=== PATIENT | female | born 1950 | race Caucasian/White ===

== ENCOUNTER 2016-05-21 21:36 | Emergency (ER) | payer BC ==
[2016-05-21 21:59] VITALS: O2SAT 98
--- NOTE | 2016-05-21 22:06 | ED.PDOC ---
History of Present Illness - General Chief Complaint: Skin/Abrasion/Tear Stated Complaint: skin tear to left leg Time Seen by Provider: 05/21/16 21:41 Source: patient, RN notes reviewed, Vital Signs reviewed Exam Limitations: no limitations - History of Present Illness Initial Comments: Patient stated that she stepped on her pajamas at her house tonight then left leg struck the edge of the marble table sustaining laceration. Timing/Duration: just prior to arrival Severity: mild Location: extremities - left leg Improving Factors: nothing Worsening Factors: nothing Associated Symptoms: other - pain bleeding Allergies/Adverse Reactions: Allergies NO KNOWN ALLERGY Allergy (Verified 05/21/16 21:50) Home Medications: Ambulatory Orders Acetaminophen W/ Codeine [Tylenol w/Codeine 300-30 mg] 1 tab PO TID PRN #14 tab 05/21/16 Cephalexin 1,000 mg PO BID #30 cap 05/21/16 Lisinopril 20 mg PO DAILY 05/21/16 Review of Systems - Review of Systems Constitutional: States: no symptoms reported EENTM: States: no symptoms reported Respiratory: States: no symptoms reported Cardiology: States: no symptoms reported Gastrointestinal/Abdominal: States: no symptoms reported Genitourinary: States: no symptoms reported Musculoskeletal: States: no symptoms reported Skin: States: see HPI Neurological: States: no symptoms reported Endocrine: States: no symptoms reported Past Medical History (General) - Patient Medical History Hx Seizures: No Hx Stroke: No Hx Dementia: No Hx Asthma: No Hx of COPD: No Hx Cardiac Disorders: No Hx Congestive Heart Failure: No Hx Pacemaker: No Hx Hypertension: Yes Hx Thyroid Disease: No Hx Diabetes: No Hx Gastroesophageal Reflux: No Hx Renal Disease: No Hx Cancer: No Hx of HIV: No Hx Hepatitis C: No Hx MRSA: No Surgical History: other - orif fracture left leg - Vaccination History Hx Tetanus, Diphtheria Vaccination: No Hx Influenza Vaccination: No - Social History Hx Tobacco Use: No Hx Alcohol Use: No Hx Substance Use: No Hx Substance Use Treatment: No Hx Depression: No Family Medical History - Family History Mother Family History: No Known Physical Exam - Physical Exam General Appearance: Alert, No apparent distress Eyes, Ears, Nose, Throat Exam: normal ENT inspection, TMs normal Neck: full range of motion, supple, normal inspection Cardiovascular/Chest: normal peripheral pulses, regular rate, rhythm, no gallop , no murmur Respiratory: lungs clear, normal breath sounds, no respiratory distress Gastrointestinal/Abdominal: non tender, soft, no organomegaly, no pulsatile mass Extremity: non-tender, normal inspection, no pedal edema Neurologic: alert, normal mood/affect, oriented x 3 Skin Exam: warm/dry, normal color Skin Problem Location: lower extremities - 6cm.laceration -dermal flap v- shaped distal third left leg Procedures - Laceration/Wound Repair Left Calf Wound Length (cm): 6 Wound's Depth, Shape: flap Wound Explored: clean Irrigated w/ Saline (cc's): 40 Betadine Prep?: Yes Anesthesia: 1% Lidocaine Volume Anesthetic (cc's): 10 Wound Debrided: undermining of skin done with scissor Wound Repaired With: sutures Suture Size/Type: 4:0, nylon Layer Closure?: No Sterile Dressing Applied?: Yes Splint Applied?: No Departure - Departure Clinical Impression: Hypertension, benign Laceration of left lower leg without complication Qualifiers: Encounter type: initial encounter Qualifier Code: (S81.812A) Laceration without foreign body, left lower leg, initial encounter Time of Disposition: 23:15 - Removal of suture 06/02/16 [facility] Disposition: Discharge to Home or Self Care Condition: Good Departure Forms: ED Discharge - Pt. Copy, Patient Portal Self Enrollment Instructions: DI for Minor Laceration Prescriptions: Cephalexin 1,000 mg PO BID #30 cap Acetaminophen W/ Codeine [Tylenol w/Codeine 300-30 mg] 1 tab PO TID PRN #14 tab PRN Reason: Pain Home Medications: Ambulatory Orders Acetaminophen W/ Codeine [Tylenol w/Codeine 300-30 mg] 1 tab PO TID PRN #14 tab 05/21/16 Cephalexin 1,000 mg PO BID #30 cap 05/21/16 Lisinopril 20 mg PO DAILY 05/21/16 Additional Instructions: RETURN TO EMERGENCY ROOM NEEDED;NEED TO WEAR TIGHT HOSE ELEVATE LEFT LEG 20 degrees AT BEDTIME
[2016-05-21] MEDS ORDERED: POVIDONE IODINE 10 % 15 ML UD TOP ONE (22:11)
[2016-05-21] MEDS ORDERED: LIDOCAINE 1% 10 ML VIAL INJ ONE (22:11)
[2016-05-21] MEDS ORDERED: TETANUS,DIPHTHERIA,PERTUSSIS 1 EA SYG IM ONE (22:21)
[2016-05-21] MEDS ORDERED: CEPHALEXIN 500MG CAP (ER DISP) PO ONE (23:10)
[2016-05-21] MEDS ORDERED: LISINOPRIL 10 MG TAB PO ONE (23:11)
[2016-05-21] MEDS ORDERED: HYDROCOD/APAP 7.5/325 (ER DISP) #3 TAB PO ONE (23:12)
[2016-05-21] MEDS ORDERED: CEPHALEXIN MONOHYDRATE 500 MG CAP PO ONE (23:19)
[2016-05-21] MEDS ORDERED: HYDROcodone 7.5MG/APAP 325MG 1 EA TAB PO ONE (23:19)
[2016-05-21 23:40] VITALS: BP 177/100; TEMP 97.9
== END 2016-05-21 23:40 | disposition home or self-care (01) ==
LOC: ER 21:36
DX: S81.812A Laceration without foreign body, left lower leg, initial encounter (principal); I10 Essential (primary) hypertension; Z23 Encounter for immunization; Z79.899 Other long term (current) drug therapy; W22.03XA Walked into furniture, initial encounter; Y92.009 Unspecified place in unspecified non-institutional (private) residence as the place of occurrence of the external cause

== ENCOUNTER 2018-06-11 10:14 | Emergency (ER) | payer MEDICARE, BC ==
[2018-06-11] MEDS ORDERED: IPRATROPIUM/ALBUTEROL 3 ML VIAL NEB ONE (10:34)
[2018-06-11] MEDS ORDERED: KETOROLAC TROMETHAMINE INJ 60 MG/2 ML VIAL IM ONE (10:34)
[2018-06-11] MEDS ORDERED: LISINOPRIL 10 MG TAB PO ONE (10:34)
--- NOTE | 2018-06-11 10:39 | ED.PDOC ---
History of Present Illness - General Chief Complaint: Respiratory Problem Stated Complaint: chest pain, coughing, headache Time Seen by Provider: 06/11/18 10:33 Source: patient Exam Limitations: no limitations - History of Present Illness Comments: patient comes in today with three-day history of cough and congestion that suddenly worsened yesterday. Patient has bodyaches and subjective fever and chills. Some nausea and loose stools but no emesis. Patient does have sore throat and does have a severe cough that is nonproductive. Patient herself has a past medical history of hypertension she has been out of her blood pressure medication for some time. Patient has no history of smoking but she has lived with smokers her whole life and does have a history of having asthma type symptoms with bouts of bronchitis every couple of years. Timing/Duration: getting worse Cough Quality/Degree: dry cough Possible Cause: no prior episodes Improving Factors: nothing Worsening Factors: nothing Associated Symptoms: cough, fever/chills, muscle aches, sore throat Respiratory Risk Factors: no cause identified Allergies/Adverse Reactions: Allergies NO KNOWN ALLERGY Allergy (Verified 05/21/16 21:50) Home Medications: Ambulatory Orders Lisinopril 20 mg PO DAILY 05/21/16 Albuterol Inhaler [Ventolin Hfa Inhaler] 108 mcg IN Q4HR PRN #1 inh 06/11/18 Lisinopril & Hydrochlorothiazi [Lisinopril/Hctz 20-12.5 mg] 1 tab PO DAILY #30 tab 06/11/18 Review of Systems - Review of Systems Constitutional: States: chills, fever, malaise EENTM: States: nose pain, nose congestion, throat pain Respiratory: States: cough. Denies: short of breath, wheezing Cardiology: Denies: chest pain, edema, palpitations Gastrointestinal/Abdominal: States: diarrhea, nausea. Denies: abdominal pain, constipation, vomiting Genitourinary: States: no symptoms reported Past Medical History (General) - Patient Medical History Hx Seizures: No Hx Stroke: No Hx Dementia: No Hx Asthma: No Hx of COPD: No Hx Cardiac Disorders: No Hx Congestive Heart Failure: No Hx Pacemaker: No Hx Hypertension: Yes Hx Thyroid Disease: No Hx Diabetes: No Hx Gastroesophageal Reflux: No Hx Renal Disease: No Hx Cancer: No Hx of HIV: No Hx Hepatitis C: No Hx MRSA: No Surgical History: tonsillectomy - Vaccination History Hx Tetanus, Diphtheria Vaccination: No Hx Influenza Vaccination: No Hx Pneumococcal Vaccination: No - Social History Hx Tobacco Use: No Hx Alcohol Use: No Hx Substance Use: No Hx Substance Use Treatment: No Hx Depression: No Family Medical History - Family History Mother Family History: No Known Living Status: Cause of : CVA Hx Family Hypertension: Yes Hx Family Stroke: Yes Physical Exam - Physical Exam General Appearance: Alert, No apparent distress Eye Exam: bilateral normal ENT Exam: hearing grossly normal, TMs normal, nasal congestion, nasal drainage, pharyngeal erythema Neck: non-tender, full range of motion, supple, normal inspection Respiratory: no respiratory distress, wheezing - wheezing at the left lower lobe with expiration and no crackles no retractions Cardiovascular/Chest: normal peripheral pulses, regular rate, rhythm, no murmur Gastrointestinal/Abdominal: normal bowel sounds, non tender, soft Neurologic: alert, oriented x 3 Progress - Progress Progress: 06/11/18 11:23 doing better after breathing treatment and discussed precautions secondary to correction smoke exposure and past treatment window. - Results/Orders Results/Orders: 06/11/18 10:35 INFLUENZA A & B BY PCR Stat Laboratory Results WBC 9.7 K/mm3 (4.8-10.8) 06/11/18 11:01 RBC 4.80 M/mm3 (4.20-5.40) 06/11/18 11:01 Hgb 14.2 gm/dL (12.0-16.0) 06/11/18 11:01 Hct 42.2 % (36.0-47.0) 06/11/18 11:01 MCV 87.8 fl (81.0-99.0) 06/11/18 11:01 MCH 29.6 pg (27.0-31.0) 06/11/18 11:01 MCHC 33.7 g/dL (33.0-37.0) 06/11/18 11:01 RDW 14.2 % (11.5-14.5) 06/11/18 11:01 Plt Count 236 K/mm3 (130-400) 06/11/18 11:01 MPV 9.5 fl (7.40-10.4) 06/11/18 11:01 Absolute Neuts (auto) 8.10 K/uL (1.8-6.8) H 06/11/18 11:01 Absolute Lymphs (auto) 0.50 K/uL (1.0-3.4) L 06/11/18 11:01 Absolute Monos (auto) 1.00 K/uL (0.2-0.8) H 06/11/18 11:01 Absolute Eos (auto) 0.10 K/uL (0.0-0.4) 06/11/18 11:01 Absolute Basos (auto) 0.00 K/uL (0.0-0.1) 06/11/18 11:01 Neutrophils % 83.9 % (42.0-78.0) H 06/11/18 11:01 Lymphocytes % 5.0 % (20.0-50.0) L 06/11/18 11:01 Monocytes % 9.9 % (2.0-9.0) H 06/11/18 11:01 Eosinophils % 0.8 % (1.0-5.0) L 06/11/18 11:01 Basophils % 0.4 % (0.0-2.0) 06/11/18 11:01 Influ A positive Chest Xray no acute cardiopulmonary disease Departure - Departure Clinical Impression: Influenza Disposition: Discharge to Home or Self Care Condition: Good Departure Forms: ED Discharge - Pt. Copy, Patient Portal Self Enrollment Diet: regular diet Referrals: Filomena Carlos NP [Primary Care Provider] - 1-2 Weeks Prescriptions: Lisinopril & Hydrochlorothiazi [Lisinopril/Hctz 20-12.5 mg] 1 tab PO DAILY #30 tab Home Medications: Ambulatory Orders Lisinopril 20 mg PO DAILY 05/21/16 Albuterol Inhaler [Ventolin Hfa Inhaler] 108 mcg IN Q4HR PRN #1 inh 06/11/18 Lisinopril & Hydrochlorothiazi [Lisinopril/Hctz 20-12.5 mg] 1 tab PO DAILY #30 tab 06/11/18 Additional Instructions: return to ER for shortness of breath, intractable emesis, contagious precautions, stay away from smoke exposure. Follow up with PCP in 2 weeks to recheck BP
--- NOTE | 2018-06-11 11:12 | RAD ---
EXAM DESCRIPTION: Chest,2 Views CLINICAL HISTORY: 67 years Female, cough COMPARISON: None. FINDINGS: Heart size is within normal limits. There is atherosclerotic change in the thoracic aorta. The lungs appear clear. Regional bony structures appear intact as visualized. Possible minimal thoracic scoliosis. IMPRESSION: No radiographic evidence of acute cardiopulmonary disease. Follow-up suggested as needed clinically. Electronically signed by: Winston Norwood MD 06/11/2018 11:10 AM [facility]
[2018-06-11 12:14] VITALS: BP 159/89; TEMP 98.2; O2SAT 94
== END 2018-06-11 12:14 | disposition home or self-care (01) ==
LOC: ER 10:14
DX: J11.1 Influenza due to unidentified influenza virus with other respiratory manifestations (principal); R06.2 Wheezing; I10 Essential (primary) hypertension
CPT/HCPCS: 36415; 71046; 85025; 87502; 94640; J1885; J7620

== ENCOUNTER → 2018-08-01 | Outpatient (CLI) | payer MEDICARE, BC | LOC: LAB.O 14:03 | PROVIDERS: ATTEND Nurse Practitioner Family | DX: Z13.220 Encounter for screening for lipoid disorders (principal); I10 Essential (primary) hypertension ==

== ENCOUNTER → 2018-10-17 | Outpatient (CLI) | payer BC, MEDICARE ==
--- NOTE | 2018-10-17 12:00 | RAD ---
Two-view left shoulder Indication: S42.202D Comparison: September 23, 2018 Impression: Previous noted comminuted fracture involving the greater tuberosity as well as anatomic and surgical neck redemonstrated with slight impaction. There is cortical irregularity of the horizontal footprint region. There is progressive union centrally but without complete healing at this time. Continued radiographic surveillance recommended. 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 Electronically signed by: Jeovany Duran MD 10/17/2018 11:57 AM CDT
== END ==
LOC: RAD 07:55
PROVIDERS: ATTEND Orthopaedic Surgery
DX: S42.202D Unspecified fracture of upper end of left humerus, subsequent encounter for fracture with routine healing (principal); M19.012 Primary osteoarthritis, left shoulder

== ENCOUNTER → 2018-10-31 | Outpatient (CLI) | payer BC, MEDICARE ==
--- NOTE | 2018-10-31 09:29 | RAD ---
EXAM DESCRIPTION: Shoulder,Left 2 or More Views CLINICAL HISTORY: 68 years Female, S42.202D COMPARISON: October 17, 2018 FINDINGS: Two views of the left shoulder again show a slightly comminuted left humeral head and neck fracture with [id number] displacement, not significantly changed from October 17, 2018. The glenohumeral joint remains anatomically aligned. Degenerative changes in the left AC joint. IMPRESSION: Comminuted left humeral head fracture with [id number] displacement, non or partially united. Overall appearance is unchanged from October 17, 2018. Electronically signed by: Bethel Richmond MD 10/31/2018 9:27 AM CDT
== END ==
LOC: RAD 08:22
PROVIDERS: ATTEND Orthopaedic Surgery
DX: S42.292D Other displaced fracture of upper end of left humerus, subsequent encounter for fracture with routine healing (principal)

== ENCOUNTER → 2018-11-14 | Outpatient (CLI) | payer BC, MEDICARE ==
--- NOTE | 2018-11-14 10:56 | RAD ---
EXAM DESCRIPTION: Shoulder,Left 2 or More Views CLINICAL HISTORY: S42.202D COMPARISON: October 31, 2018, October 17, 2018 TECHNIQUE: Two views left shoulder FINDINGS: An impacted modestly displaced fracture of the proximal humerus at the head neck junction is present with significant residual lucency at the fracture site suggesting incomplete bony union. Modest comminution and deformity is present. Early callus formation is evident on the internally rotated view. No dislocation is seen. The AC joint is degenerative but intact with no abnormality of the chest wall or scapula seen. Slightly less than 3 cm of impaction the medial aspect of the fracture with foreshortening is evident but little changed from October 31, 2018 study. IMPRESSION: 1. Proximal left humeral fracture with comminution and increasing lucency consistent with incomplete bony union and bony resorption at the fracture site. Modest impaction and medial rotation of the humeral head noted, little changed from October 31, 2018. Electronically signed by: Darinel Bond MD 11/14/2018 10:54 AM CDT
== END ==
LOC: RAD 09:37
PROVIDERS: ATTEND Orthopaedic Surgery
DX: S42.202D Unspecified fracture of upper end of left humerus, subsequent encounter for fracture with routine healing (principal)

== ENCOUNTER → 2018-12-09 | Outpatient (CLI) | payer BC, MEDICARE ==
--- NOTE | 2018-12-09 12:58 | RAD ---
PROVIDED CLINICAL HISTORY/REASON FOR EXAM: S42.202D Findings: Number of images: Two Location: Left shoulder Visualized chest is clear. Redemonstrated comminuted proximal left humerus fracture. Slightly decreased fracture lucency with corresponding increased sclerosis and callus formation. Stable alignment. Stable mild acromioclavicular osteoarthritis. No new fracture identified. IMPRESSION: Healing proximal left humerus fracture with similar alignment. Electronically signed by: Rob Bucio MD 12/09/2018 12:57 PM CDT
== END ==
LOC: RAD 08:18
PROVIDERS: ATTEND Orthopaedic Surgery
DX: S42.202D Unspecified fracture of upper end of left humerus, subsequent encounter for fracture with routine healing (principal)

== ENCOUNTER → 2019-01-06 | Outpatient (CLI) | payer BC, MEDICARE | LOC: RAD 08:48 | PROVIDERS: ATTEND Orthopaedic Surgery | DX: S42.202D Unspecified fracture of upper end of left humerus, subsequent encounter for fracture with routine healing (principal) ==

== ENCOUNTER → 2019-08-21 | Outpatient (CLI) | payer BC, MEDICARE | LOC: YCFC.O 10:40 | PROVIDERS: ATTEND Family Medicine | DX: Z00.00 Encounter for general adult medical examination without abnormal findings (principal) ==